=== PATIENT | female | born 1945 | race Caucasian/White ===

== ENCOUNTER → 2018-05-19 | Outpatient (CLI) | payer MEDICARE, OTHER ==
[~2018-05-19] MED LIST: ATOR10TA65 PO; CHOL200018 PO; IBUP200C74 PO; VENL75CA58 PO
--- NOTE | 2018-05-19 18:29 | RADIOLOGY IMAGING REPORT ---
FACILITY: [facility] PATIENT NAME: Darcie Jiménez : 1945 MR: [id number] V: [id number] EXAM DATE: ORDERING PHYSICIAN: OSKAR GARCIA TECHNOLOGIST[place] [facility] [place] Jim[place] : 1945 Visit/Account:[id number] Date of Sevice: 05/19/2018 BONE MINERAL DENSITY DEXA Scan Clinical history: Osteopenia. Comparison: DEXA scan from 02/19/2015. LUMBAR SPINE: The bone mineral density (BMD) measured from L1-L4 correlates with a Z-score 1.1 and a T-score of -0 .9 which is borderline osteopenia as defined by the World Health Organization. The corresponding ris k of fracture in the lumbar spine is increased nearly 2 times compared with a young adult reference p opulation. This value has improved by 2.7 % since the prior study. More than 5% change is considere d significant. HIP: Bone mineral density (BMD) measured in the Left total hip region correlates with a Z-score 0.5 and a T-score of -1.2 which is osteopenia as defined by the World Health Organization. Total bone mineral density is 0.858 g/cm2. The corresponding risk of fracture in the hip is increased between 2-3 times compared with a young adult reference population. This value has decreased by -7.8 % since the prior study. More than 5% change is considered significant. IMPRESSION: 1. Lumbar spine: Borderline osteopenia. There has been improvement in the bone mineral density sinc e the previous exam. 2. Left Total Hip: Osteopenia. There has been significant decrease in the bone mineral density sinc e the previous exam -7.8%. The next DEXA scan of this patient should include the following sites: L1-L4 and the left hip. FRAX? WHO Fracture Risk Assessment Tool link: <http://www.shef.ac.uk/FRAX/tool.jsp?locationValue=9> PLEASE NOTE: 1) The World Health Organization defines low BMD as follows: T-score Normal > -1 Osteopenia < -1 and > -2.5 Osteoporosis < -2.5 without fractures Established osteoporosis < -2.5 with fractures 2) In general, you may wish to consider: Diagnosis Treatment Follow-up DEXA Normal BMD Prevention 2-3 years Osteopenia Prevention/therapy 1-2 years Osteoporosis Therapy Yearly 3) Fracture risk estimated from the T-score is more accurate for vertebral fractures (often spontane ous) than for hip fractures. Report Dictated By: Zan Schulte MD at 05/19/2018 6:20 PM Report E-Signed By: Zan Schulte MD at 05/19/2018 6:25 PM BRADN:MIKO
--- NOTE | 2018-05-22 09:57 | RADIOLOGY IMAGING REPORT ---
FACILITY: [facility] PATIENT NAME: LADONNA KAUFMAN : [id number] MR: [id number] V: [id number] EXAM DATE: [id number] ORDERING PHYSICIAN: OSKAR GARCIA TECHNOLOGIST: Vianey Cervantes PROCEDURE:BILATERAL DIGITAL SCREENING MAMMOGRAM WITH CAD ASSISTED INTERPRETATION & 3D TOMOSYNTHESIS COMPARISON:Prior mammograms 04/16/16, 02/05/14, 06/12/12. INDICATIONS:SCREENING FINDINGS: Small to moderate amount of fibroglandular tissue is seen throughout the breasts. The parenchymal pattern has remained stable allowing for difference in mammographic technique & patient positioning. There is no evidence of malignant appearing mass, malignant appearing calcifications or other secondary sign of malignancy in either breast. DIAGNOSTIC CATEGORY 1--NEGATIVE. RECOMMENDATIONS: ROUTINE MAMMOGRAM AND CLINICAL EVALUATION. IMPRESSION: BIRADS 1: Negative. No significant abnormality is seen. Dictated by: Joann Klein M.D. on 05/22/2018 at 9:48 Transcribed by: LULA on 05/22/2018 at 9:54 Approved by: Joann Klein M.D. on 05/22/2018 at 9:55 [facility]
== END ==
LOC: MAMO 02:56
PROVIDERS: ATTEND Physician Assistant
DX: Z12.31 Encounter for screening mammogram for malignant neoplasm of breast (principal); M85.80 Other specified disorders of bone density and structure, unspecified site
CPT/HCPCS: 77063; 77067; 77080